=== PATIENT | male | born 1950 | race Caucasian/White ===

== ENCOUNTER 2019-03-27 12:20 | Emergency (ER) | payer SELFPAY ==
[~2019-03-27] VITALS: Ht 162.6 cm; Wt 65.8 kg
[~2019-03-27 12:20] MED LIST: HYDR25TA6
[2019-03-27 12:49] VITALS: BP 110/61; PULSE 96; RESP 18; Ht 162.6 cm; Wt 65.8 kg
== END 2019-03-27 14:15 | disposition left against medical advice (07) ==
LOC: FTE 12:20
DX: Z53.21 Procedure and treatment not carried out due to patient leaving prior to being seen by health care provider (principal)

== ENCOUNTER 2019-04-06 19:23 | Emergency (ER) | payer OTHER ==
[~2019-04-06] VITALS: Ht 165.1 cm; Wt 66.7 kg
[2019-04-06 19:30] VITALS: BP 133/60; PULSE 96; RESP 16; Ht 165.1 cm; Wt 66.7 kg
[2019-04-06] MEDS ORDERED: SOD CHLORIDE 0.9% 1,000 ML IV STA (21:41)
[2019-04-06] MEDS ORDERED: SULF1TAB31 PO (23:08)
[2019-04-06] MEDS ORDERED: TAMS-14 PO (23:09)
--- NOTE | 2019-04-06 23:13 | ERD ---
ER Documentation Chief Complaint Chief Complaint pt reports hematuria x 2 days HPI 69-year-old male presented to ED for blood in the urine x2 days. Patient states this happened one time ago last month and he was treated for a urine infection. Patient denies any pain, frequency, penile discharge, fever chills night sweats. Patient denies any allergies to medications ROS All systems reviewed and are negative except as per history of present illness. Medications Home Meds Active Scripts Tamsulosin Hcl* (Flomax*) 0.4 Mg Cap.er.24h, 0.4 MG PO BID, #30 CAP Prov:FE OWEN PA-C 04/06/19 Sulfamethoxazole/Trimethoprim* (Bactrim Ds* Tablet) 1 Each Tablet, 1 TAB PO BID for 10 Days, #20 TAB Prov:FE OWEN PA-C 04/06/19 Reported Medications Hydrochlorothiazide (Hydrochlorothiazide) 25 Mg Tablet 12/09/10 Allergies Allergies: Coded Allergies: No Known Drug Allergies (Verified Allergy, Mild, 12/09/10) PMhx/Soc Medical and Surgical Hx: pt denies Surgical Hx History of Surgery: No Anesthesia Reaction: No Hx Neurological Disorder: No Hx Respiratory Disorders: No Hx Cardiac Disorders: Yes (HTN) Hx Psychiatric Problems: No Hx Miscellaneous Medical Probl: Yes (HTN) Hx Alcohol Use: Yes Hx Substance Use: No Hx Tobacco Use: No Smoking Status: Never smoker FmHx Family History: No diabetes, No coronary disease, No other Physical Exam Vitals Vital Signs Date Temp Pulse Resp B/P (MAP) Pulse Ox O2 O2 Flow FiO2 Time Delivery Rate 04/06/19 98.1 96 16 133/60 97 19:30 (84) Physical Exam Const: No acute distress Head: Atraumatic Eyes: Normal Conjunctiva ENT: Normal External Ears, Nose and Mouth. Neck: Full range of motion. No meningismus. Resp: Clear to auscultation bilaterally Cardio: Regular rate and rhythm, no murmurs Abd: Soft, non tender, non distended. Normal bowel sounds Skin: No petechiae or rashes Back: No midline or flank tenderness Ext: No cyanosis, or edema Result Diagram: 04/06/19215404/06/192154 Results 24 hrs Laboratory Tests Test 04/06/19 21:15 04/06/19 21:55 Urine Color MARCELINO Urine Clarity CLOUDY Urine pH 7.0 Urine Specific [place] 1.014 Urine Ketones NEGATIVE mg/dL Urine Nitrite NEGATIVE mg/dL Urine Bilirubin NEGATIVE mg/dL Urine Urobilinogen NEGATIVE mg/dL Urine Leukocyte Esterase TRACE Ivory/ul Urine Microscopic RBC > 182 /HPF Urine Microscopic WBC 13 /HPF Urine Hemoglobin 3+ mg/dL Urine Glucose NEGATIVE mg/dL Urine Total Protein 2+ mg/dl White Blood Count 7.8 10^3/ul Red Blood Count 4.45 10^6/ul Hemoglobin 13.3 g/dl Hematocrit 39.6 % Mean Corpuscular Volume 89.0 fl Mean Corpuscular Hemoglobin 29.9 pg Mean Corpuscular Hemoglobin Concent 33.6 g/dl Red Cell Distribution Width 13.2 % Platelet Count 185 10^3/UL Mean Platelet Volume 9.7 fl Immature Granulocytes % 0.500 % Neutrophils % 59.6 % Lymphocytes % 26.1 % Monocytes % 10.9 % Eosinophils % 2.3 % Basophils % 0.6 % Nucleated Red Blood Cells % 0.0 /100WBC Immature Granulocytes # 0.040 10^3/ul Neutrophils # 4.6 10^3/ul Lymphocytes # 2.0 10^3/ul Monocytes # 0.9 10^3/ul Eosinophils # 0.2 10^3/ul Basophils # 0.1 10^3/ul Nucleated Red Blood Cells # 0.0 10^3/ul Sodium Level 140 mmol/L Potassium Level 4.3 mmol/L Chloride Level 103 mmol/L Carbon Dioxide Level 30 mmol/L Anion Gap 7 Blood Urea Nitrogen 24 mg/dl Creatinine 1.08 mg/dl Est Glomerular Filtrat Rate mL/min mL/min Glucose Level 90 mg/dl Calcium Level 9.2 mg/dl Total Bilirubin 0.3 mg/dl Direct Bilirubin 0.00 mg/dl Indirect Bilirubin 0.3 mg/dl Aspartate Amino Transf (AST/SGOT) 22 IU/L Alanine Aminotransferase (ALT/SGPT) 31 IU/L Alkaline Phosphatase 62 IU/L Total Protein 7.7 g/dl Albumin 4.4 g/dl Globulin 3.30 g/dl Albumin/Globulin Ratio 1.33 Current Medications Medications Dose Sig/Rfaita Start Time Status Last (Trade) Ordered Route PRN Stop Time Admin Dose Reason Admin Sodium 1,000 ml @ Q1H STAT 04/06/19 DC Chloride 1,000 mls/hr IV 21:41 04/06/19 22:04 Procedures/MDM ED course: CT UA The patient was stable throughout the ED course. The patient and/or family informed of laboratory and diagnostic imaging results throughout the ED course. Diagnostic imaging: Read by radiologist Alexa Moreira MD PROCEDURE: CT Abdomen and Pelvis Without Intravenous Contrast CLINICAL INDICATION: Kidney stones. TECHNIQUE: Axial computed tomography images of the abdomen and pelvis without intravenous contrast. Sagittal and coronal reformatted images were created and reviewed. CTDIvol (mGy) = 8.26; total DLP (mGy-cm) = 490.28. This CT exam was performed using one or more of the following dose reduction techniques: automated exposure control, adjustment of the mA and/or kV according to patient size, and/or use of iterative reconstruction technique. DICOM images are available. COMPARISON: None FINDINGS: LUNG BASES: Unremarkable. No mass. No consolidation. MEDIASTINUM: Small hiatal hernia noted. ABDOMEN: LIVER: Unremarkable. GALLBLADDER AND BILE DUCTS: Multiple gallstones in the gallbladder. No gallbladder wall thickening. No pericholecystic fluid. No biliary dilatation. PANCREAS: Unremarkable. No ductal dilation. SPLEEN: Unremarkable. No splenomegaly. ADRENALS: Unremarkable. No mass. KIDNEYS AND URETERS: The kidneys are morphologically normal. No nephrolithiasis. No hydronephrosis. No obstructive uropathy. STOMACH AND BOWEL: Unremarkable. No obstruction. No mucosal thickening. PELVIS: APPENDIX: The appendix is normal in appearance. No evidence of appendicitis. BLADDER: Urinary bladder is virtually empty. Mild stranding of the pelvic fat surrounding the bladder. Consider nonspecific cystitis. No stones. REPRODUCTIVE: Unremarkable as visualized. ABDOMEN and PELVIS: INTRAPERITONEAL SPACE: Unremarkable. No free air. No significant fluid collection. BONES/JOINTS: Degenerative changes at L4-5 with anterior subluxation of L4 on L5, and degeneration of the facet joints. Mild disc narrowing. No acute osseous abnormality. SOFT TISSUES: Small bilateral inguinal hernias noted, containing only fat. VASCULATURE: The abdominal aorta is atherosclerotic. No aneurysm. LYMPH NODES: Unremarkable. No enlarged lymph nodes. IMPRESSION: 1. The kidneys are morphologically normal. No nephrolithiasis. No hydronephrosis. No obstructive uropathy. 2. Urinary bladder is virtually empty. Mild stranding of the pelvic fat surrounding the bladder. Consider nonspecific cystitis. 3. Multiple gallstones in the gallbladder. No gallbladder wall thickening. No pericholecystic fluid. No biliary dilatation. 4. Small hiatal hernia noted. 5. Small bilateral inguinal hernias noted, containing only fat. 6. No acute abnormality demonstrated in the abdomen and pelvis. Medications given in ER: Patient refused IV fluids Medical decision makin-year-old male presenting to the ED for hematuria x2 days. Patient's UA indicated patient has a urinary infection. CT scan showed no kidney stones. Patient's physical exam was unremarkable he had no CVA tenderness he remained afebrile during his entire stay in the hospital. At this time I have low suspicion for coronary syndrome, AAA, mesenteric ischemia, lower lobe pneumonia, DKA, bowel perforation, cholecystitis, choledocholithiasis, ascending cholangitis, hepatic abscess, pancreatitis, PUD, gastritis, GERD, splenic r upture, diverticulitis,pyelonephritis, nephrolithiasis, appendicitis, constipation, testicular torsion, epididymitis, urethritis, or prostatitis my abdominal pain male. Giving the patient resources for urologist. Patient will be treated outpatient with Bactrim and Flomax. Patient was advised if symptoms worsen or if he is unable to urinate or develops worsening back pain increased fever pain with urination or any other symptoms to return to ER immediately. Otherwise follow-up with your primary care provider in 1 to 2 days regarding this visit. Patient is in agreement to the treatment plan and all questions were answered upon discharge Prescription for home: Bactrim Flomax Discharge: At this time, patient is stable for discharge and outpatient management. I have instructed the patient to follow-up with his\her primary care physician in 1 to 2 days. I have discussed with the patient the possibility of needing to see a specialist for further work-up and imaging studies if symptoms persist. I have instructed the patient to promptly return to the ER for any new or worsening sy mptoms including increased pain, fever, nausea, vomiting, weakness or LOC. The patient and\or family expressed understanding of and agreement with this plan. All questions were answered. Home care instructions were provided. Disclaimer: Inadvertent spelling and grammatical errors are likely due to EHR\dictation software use and do not reflect on the overall quality of patient care. Also, please note that the electronic time recorded on the note does not necessarily reflect the actual time of the patient encounter. Departure Diagnosis: Primary Impression: Hematuria Hematuria type: unspecified type Qualified Codes: R31.9 - Hematuria, unspecified Additional Impression: UTI (urinary tract infection) Urinary tract infection type: site unspecified Hematuria presence: with hematuria Qualified Codes: N39.0 - Urinary tract infection, site not specified; R31.9 - Hematuria, unspecified Condition: Stable Patient Instructions: Understanding Urinary Tract Infections (UTIs), Hematuria Referrals: BAILEY JEREZ MD, ANDY Y [facility] YOU HAVE RECEIVED A MEDICAL SCREENING EXAM AND THE RESULTS INDICATE THAT YOU DO NOT HAVE A CONDITION THAT REQUIRES URGENT TREATMENT IN THE EMERGENCY DEPARTMENT. FURTHER EVALUATION AND TREATMENT OF YOUR CONDITION CAN WAIT UNTIL YOU ARE SEEN IN YOUR DOCTORS OFFICE WITHIN THE NEXT 1-2 DAYS. IT IS YOUR RESPONSIBILITY TO MAKE AN APPOINTMENT FOR FOLOW-UP CARE. IF YOU HAVE A PRIMARY DOCTOR --you should call your primary doctor and schedule an appointment IF YOU DO NOT HAVE A PRIMARY DOCTOR YOU CAN CALL OUR PHYSICIAN REFERRAL HOTLINE AT IF YOU CAN NOT AFFORD TO SEE A PHYSICIAN YOU CAN CHOSE FROM THE FOLLOWING [facility] [address] [facility] [address] [facility] [facility] [address] [facility] [address] [facility] [address] [facility]. [facility]. [address] [facility] YOU HAVE RECEIVED A MEDICAL SCREENING EXAM AND THE RESULTS INDICATE THAT YOU DO NOT HAVE A CONDITION THAT REQUIRES URGENT TREATMENT IN THE EMERGENCY DEPARTMENT. FURTHER EVALUATION AND TREATMENT OF YOUR CONDITION CAN WAIT UNTIL YOU ARE SEEN IN YOUR DOCTORS OFFICE WITHIN THE NEXT 1-2 DAYS. IT IS YOUR RESPONSIBILITY TO MAKE AN APPOINTMENT FOR FOLOW-UP CARE. IF YOU HAVE A PRIMARY DOCTOR --you should call your primary doctor and schedule and appointment IF YOU DO NOT HAVE A PRIMARY DOCTOR YOU CAN CALL OUR PHYSICIAN REFERRAL HOTLINE AT . IF YOU CAN NOT AFFORD TO SEE A PHYSICIAN YOU CAN CHOSE FROM THE FOLLOWING FORMERLY [facility], [facility] INSTITUTIONS: [facility] [address] [place] [address] [facility] [address] [place] [address] [facility] [address] [place] [address] Additional Instructions: Call your primary care doctor TOMORROW for an appointment during the next 1-2 days.See the doctor sooner or return here if your condition worsens before your appointment time. FE OWEN PA-C Apr 06, 2019 23:13
== END 2019-04-07 00:03 | disposition home or self-care (01) ==
LOC: FTE 19:23
DX: N39.0 Urinary tract infection, site not specified (principal); I10 Essential (primary) hypertension
CPT/HCPCS: 36415; 74176; 80053; 81001; 85025; J7030; Z7502

== ENCOUNTER 2019-04-17 01:27 | Emergency (ER) | payer OTHER ==
[~2019-04-17] VITALS: Ht 170.2 cm; Wt 66.7 kg
[~2019-04-17 01:27] MED LIST changes: +SULF1TAB31 PO; +TAMS-14 PO
[2019-04-17 01:31] VITALS: BP 138/75; PULSE 96; RESP 18; Ht 170.2 cm; Wt 66.7 kg
--- NOTE | 2019-04-17 03:50 | ERD ---
ER Documentation Chief Complaint Chief Complaint painful/burning urination, also c/o blood in urine HPI Patient is a 69 years old male presenting to the clinic for CT results. Patient was seen and evaluated for hematuria on April 06, 2019. Patient left before receiving the CT scan results which was negative. No obvious signs of kidney infection. Patient was given antibiotic treatment with Bactrim. Patient reports that still has persistent hematuria. Patient states that he has made an appointment with the urologist. ROS All systems reviewed and are negative except as per history of present illness. Medications Home Meds Active Scripts Tamsulosin Hcl* (Flomax*) 0.4 Mg Cap.er.24h, 0.4 MG PO BID, #30 CAP Prov:FE OWEN PA-C 04/06/19 Sulfamethoxazole/Trimethoprim* (Bactrim Ds* Tablet) 1 Each Tablet, 1 TAB PO BID for 10 Days, #20 TAB Prov:FE OWEN PA-C 04/06/19 Reported Medications Hydrochlorothiazide (Hydrochlorothiazide) 25 Mg Tablet 12/09/10 Allergies Allergies: Coded Allergies: No Known Drug Allergies (Verified Allergy, Mild, 12/09/10) PMhx/Soc Medical and Surgical Hx: pt denies Surgical Hx History of Surgery: No Anesthesia Reaction: No Hx Neurological Disorder: No Hx Respiratory Disorders: No Hx Cardiac Disorders: Yes (HTN) Hx Psychiatric Problems: No Hx Miscellaneous Medical Probl: Yes (HTN) Hx Alcohol Use: Yes Hx Substance Use: No Hx Tobacco Use: No Smoking Status: Current every day smoker FmHx Family History: No diabetes, No coronary disease, No other Physical Exam Vitals Vital Signs Date Temp Pulse Resp B/P (MAP) Pulse Ox O2 O2 Flow FiO2 Time Delivery Rate 04/17/19 97.8 96 18 138/75 98 01:31 (96) Physical Exam Const: No acute distress Head: Atraumatic Eyes: Normal Conjunctiva Resp: Clear to auscultation bilaterally Cardio: Regular rate and rhythm, no murmurs Abd: Soft, non tender, non distended. Normal bowel sounds Skin: No petechiae or rashes Back: No midline or flank tenderness. Negative CVAT. Neur: Awake and alert Psych: Normal Mood and Affect Procedures/MDM Patient CT results was presented to patient. Patient was informed to follow-up with urology appointment further evaluation. Patient is stable and ready for discharge. Departure Diagnosis: Primary Impression: Hematuria Hematuria type: unspecified type Qualified Codes: R31.9 - Hematuria, unspecified Condition: Stable Patient Instructions: Hematuria Referrals: [facility] Additional Instructions: Patient advised to return to the ED immediately for new or worsening symptoms. Patient advised to follow up with primary care provider in the next 24-48 hours. Patient verbalized understanding and agrees with treatment plan and course of action. If patient has no primary care they may follow up with [facility] + [facility] [address] [place] [id number] or [facility] [address] [place] [address] or [facility] [address] [place] [address] LIZA KILLIAN PA-C Apr 17, 2019 03:50
== END 2019-04-17 04:03 | disposition home or self-care (01) ==
LOC: FTE 01:27
DX: R31.9 Hematuria, unspecified (principal)
CPT/HCPCS: 99282

== ENCOUNTER 2019-07-03 23:05 | Emergency (ER) | payer SELFPAY ==
[~2019-07-03] VITALS: Ht 165.1 cm; Wt 66.2 kg
[~2019-07-03 23:05] MED LIST changes: +CIPR500T4 PO; +ELEC100080 PO; +IBUP-1542 PO; +LIDO20SO19 MM; +[UNRECOGNIZED DRUG - CODE] MM; +[UNRECOGNIZED DRUG - CODE] MM
[2019-07-03 23:14] VITALS: BP 117/69; PULSE 84; RESP 20; Ht 165.1 cm; Wt 66.2 kg
== END 2019-07-04 01:27 | disposition left against medical advice (07) ==
LOC: FTE 23:05
DX: Z53.21 Procedure and treatment not carried out due to patient leaving prior to being seen by health care provider (principal)

== ENCOUNTER 2019-07-26 10:00 | Emergency (ER) | payer OTHER ==
[~2019-07-26] VITALS: Ht 165.1 cm; Wt 68.2 kg
[~2019-07-26 10:00] MED LIST changes: -ELEC100080 PO; -[UNRECOGNIZED DRUG - CODE] MM; -[UNRECOGNIZED DRUG - CODE] MM
[2019-07-26 10:07] VITALS: BP 137/80; PULSE 82; RESP 18; Ht 165.1 cm; Wt 68.2 kg
== END 2019-07-26 11:03 | disposition home or self-care (01) ==
LOC: FTE 10:00
DX: K12.0 Recurrent oral aphthae (principal); I10 Essential (primary) hypertension
CPT/HCPCS: 99282